=== PATIENT | female | born 1945 | race Caucasian/White ===

== ENCOUNTER 2022-11-30 13:40 | Outpatient (CLI) | payer MEDICARE, SELFPAY ==
--- NOTE | ~2022-11-30 | PE_ITS ---
EXAMINATION: PET skull to mid thigh DATE: 11/30/2022 15:37 INDICATION: Metastatic carcinoma TECHNIQUE: Blood glucose level was 102 mg/dL. 9.742 mCi of 18-fluorodeoxyglucose (18-FDG) was adminis tered i.v. Low dose computed tomography (CT) images were acquired from the base of the brain to the p roximal thighs for attenuation correction and anatomic localization. Positron emission tomography (PE T) images were acquired in the same distribution beginning 68 minutes after injection. Images includi ng fused PET/CT images were reconstructed in axial, coronal, and sagittal planes. Automated exposure control technique was employed. The dose-length product was 870.97mGy-cm. COMPARISON: None FINDINGS: Head/neck: There is symmetric increased activity in the oral cavity, laryngeal muscles and ocular muscles withou t CT correlate, likely physiologic. No pathologically enlarged cervical lymphadenopathy or suspicious foci of increased FDG uptake in the visualized head or neck. Chest: 6 mm nodule in the superior segment of the left lower lobe with mild increased FDG uptake of 3.1. The re is a second 7 mm right upper lobe nodule with maximal SUV of 2.2. There are a few FDG avid lymph n odes at the right hilum and mediastinum. The 3 FDG avid hilar lymph nodes are difficult to distinguis h from the adjacent vasculature in the absence of intravenous contrast but demonstrate maximal SUV va lues of 5.0, 12.7 and 14.4. More clearly delineated 1.5 x 1.0 cm mediastinal lymph node posterior to the right mainstem bronchus demonstrates maximal SUV of 20. Borderline heart size. Minimal pericardia l effusion. Atherosclerotic coronary artery calcification and aortic valve calcification. Thoracic ao rta is normal in caliber. Abdomen/pelvis/proximal thighs: Therefore FDG avid low-attenuation masses in the liver, the largest at the dome measuring approximate ly 2.5 cm with maximal SUV of 23.4. Gallbladder is decompressed around a 3.7 cm calcified gallstone. The pancreas, spleen and bilateral adrenal glands are normal. Mild bilateral renal atrophy. Physiolog ic renal accumulation and excretion of FDG activity in the kidneys, bladder and along portions of ure ters. There is a diverting loop colostomy in the left abdomen likely involving the splenic flexure of the c olon. There is moderate uptake in the skin surface along the margins of the ostomy without abnormal m ass lesion most consistent with physiologic response to the ostomy creation. There is marked wall thi ckening of the and descending colon beginning immediately downstream from the diverting colostomy. In the colon at this location has irregular lobular masslike configuration with surrounding stranding a nd several surrounding satellite nodules, all with marked increased FDG uptake consistent with likely primary colon cancer and extra serosal invasion or local metastatic disease. The maximal SUV in this region is 35.9. The regional masslike enlargement measures approximately 9.5 x 6.3 x 8.7 less severe wall thickening but with similar marked increased FDG uptake extending additional 9 cm distally karthik g the descending colon. There are couple FDG avid nodules along the sigmoid mesentery abutting the wa ll of the bladder with maximal SUV values of 16.3 and 16.9 likely representing metastatic mesenteric lymph nodes. No small bowel obstruction. The uterus is not identified and has likely been surgically resected. No abscess or free intraperineal gas or fluid. Stenting of the left common iliac vein. Musculoskeletal: No suspicious lytic, blastic or FDG avid bone lesions. IMPRESSION: 1. Large markedly FDG avid mass at the proximal descending colon with additional wall thickening and what increased FDG uptake extending more distally along the descending colon consistent with likely p rimary colon cancer. This occurs immediately distal to a left abdominal diverting loop colost
[2022-11-30 14:17] LABS: Glucose Point of Care 102 mg/dl (65-105)
== END 2022-11-30 13:41 | disposition home or self-care (01) ==
PROVIDERS: Visit Provider Surgery
DX: C48.1 Malignant neoplasm of specified parts of peritoneum (principal); K80.20 Calculus of gallbladder without cholecystitis without obstruction
CPT/HCPCS: 78815; A9552

== ENCOUNTER 2023-03-23 12:32 | Emergency (ER) | payer MEDICARE, SELFPAY ==
[2023-03-23] VITALS (19 sets, daily range): BP systolic 112–129; BP diastolic 40–57; PULSE 44–71; RESP 13–24; TEMP 36.4; O2SAT 99–100
--- NOTE | ~2023-03-23 | US_ITS ---
EXAMINATION: US venous doppler [facility] DATE: 03/23/2023 17:17 INDICATION: Left lower limb swelling. TECHNIQUE: Grayscale ultrasound images without and with compression and Doppler ultrasound images of the bilateral lower extremity veins were obtained. COMPARISON: None. FINDINGS: The visualized portions of right common femoral vein, profunda (deep) femoral vein, femoral vein, pop liteal vein, peroneal veins, posterior tibial veins, and greater saphenous vein outflow are patent. There is thrombus in left common femoral vein, profunda femoral vein, femoral vein, popliteal vein, p eroneal veins, posterior tibial veins, and greater saphenous vein. IMPRESSION: 1. Extensive deep vein thrombosis in left lower limb. I called this result to Dr. Cedillo. Reviewed, dictated and finalized at location A.
[2023-03-23 13:14] LABS: Basophils Absolute Auto 0.1 K/mm3 (0.0-0.1); Basophils Percent Auto 0.7 % (0.2-1.2); Eosinophils Absolute Auto 0.5 K/mm3 (0-0.3); Hematocrit 31.9 % (37.0-47.0); Hemoglobin 10.1 g/dL (12.0-15.0); Immature Granulocyte Absolute 0.11 K/mm3 (0.00-0.031); Immature Granulocyte Percent A 1.1 % (0-0.5); Lymphocytes Absolute Auto 2.86 K/mm3 (0.9-3.2); Lymphocytes Percent Auto 27.6 % (18.3-44.2); Mean Corpuscular HGB Conc 31.7 g/dl (32-36); Mean Corpuscular Volume 94.7 fl (80-100); Monocytes Absolute Auto 0.6 K/mm3 (0.1-0.6); Monocytes Percent Auto 5.9 % (2.6-8.5); Neutrophils Absolute Auto 6.2 K/mm3 (1.3-6.7); Neutrophils Percent Auto 59.7 % (45.5-73.1); Platelet Count Result 282 k/mm3 (150-375); Red Blood Count 3.37 M/mm3 (4.2-5.4); Red Cell Distribution Width 16.3 % (11.5-14.5); White Blood Count 10.4 K/mm3 (4.5-10.0)
[2023-03-23 13:30] LABS: Alanine Aminotransferase 23 U/L (6-35); Albumin Level 3.5 g/dL (3.5-5.1); Alkaline Phosphatase 124 U/L (38-126); Anion Gap 8 mmol/L (8-16); Aspartate Amino Transferase 31 U/L (14-36); Bilirubin,Total 0.4 mg/dL (0.2-1.3); Blood Urea Nitrogen 34 mg/dL (7-17); Calcium 9.2 mg/dL (8.4-10.2); Carbon Dioxide 15 mmol/L (22-30); Chloride 113 mmol/L (98-107); Estimated Glomerular Filt Rate 24; Glucose 152 mg/dL (65-110); Potassium 3.4 mmol/L (3.4-5.0); Sodium 136 mmol/L (137-145)
--- NOTE | 2023-03-23 15:14 | ED.EXTPRO ---
HPI - Extremity Problem General Chief complaint: Extremity Problem,Nontraumatic Stated complaint: left leg swelling Time Seen by Provider: 03/23/23 15:13 Source: patient and family Limitations: no limitations History of Present Illness HPI Narrative: Patient is a 78-year-old female presented to the emergency department complaining of left leg swelling that started on Sunday. Patient denies any history of unilateral lower extremity swelling in the past but does admit to history of bilateral lower extremity swelling when she had heart failure exacerbation many years ago. Patient denies any history of blood clots. Patient notes that the swelling has not improved prompting her to call her history professor who told her to come in to get an ultrasound and further evaluation. Patient is that she has tried to elevate the extremity without any relief. Patient denies any chest pain or shortness of breath. Patient admits to having metastatic cancer of her colon and liver and right lung for which she is seeing an oncologist Dr. Ramos and is currently on a novel medication intervention which she is unsure the name but received 1 dose thus far and has her next dose scheduled for April 05. Patient denies use of blood thinners. Patient denies long distance travel. Patient denies hemoptysis, cough, abdominal pain, nausea, vomiting, melena, hematochezia, dysuria, hematuria, urinary frequency, difficulty urinating, decreased urine production, numbness, weakness, recent injuries, recent illness. Patient denies any pain associated with the swelling. Patient denies fever. Related Data Allergies Allergy/AdvReac Type Severity Reaction Status Date / Time No Known Allergies Allergy Verified 03/23/23 15:34 PMFSH Comments Past medical history includes metastatic cancer in her colon and liver and right lung. Patient denies any allergies to medications. Patient admits to regular tobacco use. Patient denies alcohol or illicit drug use. Past surgical history includes port in the right chest wall and colostomy. Exam Const: General: no acute distress and alert Nutritional Appearance: obese Orientation/consciousness: patient oriented x3 HENMT: Head: normal to inspection Mouth: Yes moist mucous membranes Throat: posterior oropharynx normal Eyes: Conjunctivae: conjunctivae normal Pupils: Equal, round and reactive pupils present Chest: Other: Right chest wall port without tenderness to palpation or erythema. Resp: Effort & Inspection: normal respiratory effort and not labored Auscultation: clear to auscultation bilaterally Cardio: Rate: regular rate Rhythm: regular rhythm GI: Inspection: non-distended GI Palp: Yes Soft to palpation and No Tenderness to palpation present (GI) Other: Colostomy present over the left abdomen with stoma site appearing well and brown stool in the bag. Skin: Rashes: no rashes Neuro: General: patient oriented x3 and moves all extremities Extrem: General: edema left (2+ pitting) Psych: Mental Status: mental status grossly normal Course Vital Signs Vital signs: Vital Signs Temperature 97.6 F 03/23/23 12:52 Pulse Rate 59 L 03/23/23 12:52 Respiratory Rate 18 03/23/23 12:52 Blood Pressure 112/45 L 03/23/23 12:52 Pulse Oximetry 100 03/23/23 12:52 Oxygen Delivery Room Air 03/23/23 12:52 Temperature 97.6 F 03/23/23 12:52 Pulse Rate 55 L 03/23/23 18:23 Respiratory Rate 19 03/23/23 18:23 Blood Pressure 129/53 L 03/23/23 18:23 Pulse Oximetry 100 03/23/23 18:23 Oxygen Delivery Room Air 03/23/23 15:11 MDM - Extremity (Nontraumatic) MDM Narrative Medical decision making narrative: Patient presents as noted above. Vital signs without significant abnormalities. Patient appears in no acute distress. Physical examination remarkable for unilateral left lower extremity pitting edema. Left lower extremity neurovascularly intact. Patient denies any pain. Patient denies his
[2023-03-23 16:53] LABS: INR 1.1; Prothrombin Time 14.3 Seconds (11.1-14.7)
[2023-03-23] MEDS: APIXABAN 5 MG TABLET 10 MG PO (18:16)
== END 2023-03-23 18:20 | disposition home or self-care (01) ==
PROVIDERS: Preventive Medicine Aerospace Medicine; Emergency Provider Student in an Organized Health Care Education/Training Program; PCP Internal Medicine
DX: I82.402 Acute embolism and thrombosis of unspecified deep veins of left lower extremity (principal); C78.7 Secondary malignant neoplasm of liver and intrahepatic bile duct; C78.00 Secondary malignant neoplasm of unspecified lung; C78.5 Secondary malignant neoplasm of large intestine and rectum; I50.9 Heart failure, unspecified
CPT/HCPCS: 36415; 80053; 85025; 85610; 85730; 93970; 99284; A9270

== ENCOUNTER 2023-11-25 10:59 | Observation (INO) | payer MEDICARE, SELFPAY ==
[2023-11-25] VITALS (12 sets, daily range): BP systolic 118–190; BP diastolic 41–73; PULSE 39–50; RESP 12–20; TEMP 36.5–36.8; O2SAT 94–100; BMI 39.4
--- NOTE | ~2023-11-25 | XR_ITS ---
EXAMINATION: XR pelvis 1-2V DATE: 11/25/2023 12:40 INDICATION: Trauma TECHNIQUE: An anteroposterior view of the pelvis was obtained. COMPARISON: None. FINDINGS: Bone alignment is normal. No fracture. Mild osteoarthritis at the bilateral hip and sacroiliac joint spaces. There is calcified atherosclerosis of the aorta extending into the bilateral iliac and proxim al femoral arteries. Left common iliac vein stenting. IMPRESSION: 1. No acute osseous abnormality. Reviewed, dictated and finalized at location A.
--- NOTE | ~2023-11-25 | XR_ITS ---
EXAMINATION: XR elbow RT min 3V, XR shoulder RT min 2V, XR humerus RT DATE: 11/25/2023 12:40 INDICATION: Right upper arm pain post fall TECHNIQUE: 1. Anteroposterior and transcatheter Y views of the right shoulder were obtained. 2. Anteroposterior and lateral views of the right humerus were obtained. 3. Anteroposterior, two oblique and lateral views of the right elbow were obtained. COMPARISON: None. FINDINGS: Comminuted fractures of the proximal right humerus with a pair of oblique fracture planes beginning a t the mid diaphysis and with one fracture plane appears to extend to involve the cephalad margin of t he greater tuberosity. There is 35 degrees posterior angulation of the distal diaphysis relative to t he humeral head associated with one of the more proximal fractures. There is a 7 mm posterior displac ement of the most distal extending fracture plane. No fracture of the more distal right humerus or visualized proximal forearm. Normal alignment with mi ld osteoarthritis at the right elbow. No elbow joint effusion. Mild osteoarthritis at the right acrom ion clavicular and glenohumeral joints. There is an accessed right subclavian central venous port cat heter with distal tip in the right atrium. Visualized portions of the lungs are clear IMPRESSION: 1. Displaced and angulated comminuted fractures of the proximal right humerus which appears to extend from the greater tuberosity to the anterior margin of the mid diaphysis. Reviewed, dictated and finalized at location A. IMPRESSION: 1. Displaced and angulated comminuted fractures of the proximal right humerus w hich appears to extend from the greater tuberosity to the anterior margin of th e mid diaphysis. IMPRESSION: 1. Displaced and angulated comminuted fractures of the proximal right humerus w hich appears to extend from the greater tuberosity to the anterior margin of th e mid diaphysis.
--- NOTE | ~2023-11-25 | CT_ITS ---
EXAMINATION: CT brain wo con DATE: 11/25/2023 12:26 INDICATION: Check regulated patient with large scalp hematoma post fall with head injury TECHNIQUE: Computed tomography (CT) of the head was performed without intravenous contrast. Sagittal and coronal reconstructions were performed. The mA was adjusted according to patient size. Iterative reconstruction technique was employed. The dose-length product was 681.00 mGy-cm. COMPARISON: None FINDINGS: Large frontal scalp hematoma. No calvarial fracture. No acute intracranial hemorrhage, acute infarcti on or abnormal extra axial fluid collection. There is mild scattered white matter hypoattenuation con sistent with chronic small vessel ischemic disease. Symmetric prominence of the sulci and and subarac hnoid spaces overlying the convexities consistent with mild to moderate age-appropriate diffuse cereb ral volume loss. Ventricles are normal and symmetric. No mass/mass effect. Partial opacification of t he posterior left ethmoid air cell. Small left mastoid effusion. The orbits are normal. IMPRESSION: 1. Large frontal scalp hematoma. No fracture or acute intracranial process. 2. Age related changes including mild to moderate diffuse volume loss and mild scattered white matter hypoattenuation consistent with chronic small vessel ischemic disease. Reviewed, dictated and finalized at location A. IMPRESSION: 1. Large frontal scalp hematoma. No fracture or acute intracranial process. 2. Age related changes including mild to moderate diffuse volume loss and mild scattered white matter hypoattenuation consistent with chronic small vessel isc hemic disease.
--- NOTE | ~2023-11-25 | CT_ITS ---
EXAMINATION: CT cervical spine wo con DATE: 11/25/2023 12:26 INDICATION: Fall with head injury TECHNIQUE: Computed tomography (CT) of the cervical spine was performed without intravenous contrast. The dose-length product was 464.06 mGy-cm. COMPARISON: None FINDINGS: 10 degree lower cervical dextrocurvature. Sagittal alignment is normal. Vertebral body heights are no rmal. No fracture. Severe osteoarthritis at the atlantoaxial articulation. Moderate disc height loss at C4-C5 and C5-C6. Mild disc height loss at C6-C7 and C7-T1. Severe uncovertebral osteoarthritis on the left at C5-C6. Mild uncovertebral osteoarthritis at several of the remaining cervical uncovertebr al joints. Severe facet osteoarthritis on the right at C2-C3. Mild to moderate osteoarthritis in the remainder of the cervical spine most prominent at the mid to upper left cervical spine. Mild disc bul ges at C4-C5 and C5-C6 resulting in minimal central canal stenosis. Mild to moderate neural foraminal stenosis on the left at C5-C6 with minimal to mild neural foraminal stenosis at a few additional lev els on both the left and right. Atherosclerotic calcification along the bilateral carotid arteries. C ervical soft tissues are otherwise unremarkable. Visualized apices of lungs are clear. IMPRESSION: 1. Moderate cervical spondylosis. No acute osseous abnormality. Reviewed, dictated and finalized at location A.
--- NOTE | ~2023-11-25 | XR_ITS ---
EXAMINATION: XR chest 1V portable DATE: 11/25/2023 12:40 INDICATION: Trauma TECHNIQUE: frontal view of the chest was obtained. COMPARISON: None FINDINGS: The lungs are clear with no focal airspace opacities, pulmonary edema, pleural effusion or pneumothor ax. Normal heart size with prominent left paracardial fat pad. Access right subclavian central venous port catheter with distal tip in the right atrium. Mild to moderate thoracic spondylosis. Partially visualized indeterminate 3.5 cm calcific density projecting over the right upper quadrant. IMPRESSION: 1. No acute cardiopulmonary disease. Reviewed, dictated and finalized at location A.
--- NOTE | 2023-11-25 11:01 | ED.FALL ---
HPI - Fall General Chief Complaint: Fall Stated Complaint: fall Time Seen by Provider: 11/25/23 11:01 History of Present Illness HPI Narrative: Patient is a 78-year-old female with history of metastatic colon cancer, in remission, status post colostomy placement last year, DVT on Eliquis here after a fall. Patient states that prior to arrival she was microwave being some sausage and the casing exploded, she went to try to clean up the mess and fell face forward hitting her head on the floor. She denies loss of consciousness. She is anticoagulated on Eliquis. She does have a prior raised area on her forehead after a fall with a hematoma in this same location from an injury that occurred a couple of years ago. She notes it has increased in size since the fall. She is additionally complaining of right shoulder and upper arm pain since the fall, worse with movement, severe. No meds taken prior to arrival. She follows with [facility]Note 3[facility] Oncology. Related Data Home Medications Medication Instructions Recorded Confirmed aspirin 81 mg tablet,delayed 81 mg PO DAILY 11/25/23 11/25/23 release atorvastatin 40 mg tablet 40 mg PO QHS 11/25/23 11/25/23 carvedilol 12.5 mg tablet 12.5 mg PO BID 11/25/23 11/25/23 ergocalciferol (vitamin D2) 1,250 50,000 unit PO WEEKLY 11/25/23 11/25/23 mcg (50,000 unit) capsule losartan 100 mg tablet 100 mg PO DAILY 11/25/23 11/25/23 prednisone 20 mg tablet 60 mg DAILY 11/25/23 11/25/23 torsemide 20 mg tablet 20 mg PO DAILY 11/25/23 11/25/23 Allergies Allergy/AdvReac Type Severity Reaction Status Date / Time No Known Allergies Allergy Verified 03/23/23 15:34 Review of Systems Review of Systems: All systems reviewed & are unremarkable except as noted in HPI and below PMFSH Social History Social History Smoking packs per day: 1 Smoking cigarettes per day: 20.0 Years smoked: 55 Smoking pack-years: 55.00 Smoking status: Heavy tobacco smoker Alcohol intake: former Substance use: unknown Do You Feel Safe in your Home?: Yes Lack of Transportation: No Lack of Food: Never True Current Housing: I Have Housing Concerned About Future Housing: No Difficulty Paying Gas/Electric Bills: No Difficulty Paying for Meds: No Currently Unemployed: No Education: Decline to Answer Difficulty w/ Childcare or Family Care: No Spiritual care concerns: No Exam Narrative: GENERAL: Well-appearing, well-nourished, and in no acute distress. HEAD: Normocephalic, hematoma present to the midforehead, small overlying abrasion, no active bleeding. EYES: PERRLA and EOMI. ENT: Nares clear. Mucous membranes moist. NECK: Supple. No cervical spine tenderness. CHEST: Clear to auscultation. No respiratory distress. No chest wall tenderness. HEART: Regular rate and rhythm. Normal peripheral pulses. ABDOMEN: Soft, nontender, nondistended. Colostomy present in the left abdomen. EXTREMITIES: Tenderness present in the right shoulder and right humerus, arm held in flexion, no elbow tenderness with normal range of motion, no wrist tenderness with normal range of motion. Sensation intact throughout arm, strong radial pulse, normal capillary refill in the hand. Left upper extremity, bilateral lower extremities atraumatic. SKIN: Warm, dry, no rash. NEURO: No focal deficits. Alert and oriented x3. PSYCH: Normal mood and affect. Course Course Emergency Course: Chart review performed. Patient here after a fall. Medication list includes Eliquis, she appears to have been here last in March of 2023 and was diagnosed with a DVT. Patient seen evaluated, nontoxic appearing. She is here after mechanical fall, has a head injury as well as a right upper extremity injury. She is on anticoagulation. Imaging ordered. Pain medication ordered. Lab work and imaging reviewed, white blood cell count 23, renal function improved from last draw about 8 m
[2023-11-25] MEDS: ONDANSETRON INJ 4 MG/2 ML VIAL IV PUSH (12:02)
[2023-11-25] MEDS: MORPHINE SULFATE (*CRX) 4 MG/ML INJ IV PUSH ×3 (12:02→18:45)
[2023-11-25 12:05] LABS: Basophils Absolute Auto 0.1 K/mm3 (0.0-0.1); Basophils Percent Auto 0.3 % (0.2-1.2); Hematocrit 39.8 % (37.0-47.0); Hemoglobin 13.2 g/dL (12.0-15.0); Immature Granulocyte Absolute 0.88 K/mm3 (0.00-0.031); Immature Granulocyte Percent A 3.8 % (0-0.5); Lymphocytes Absolute Auto 3.61 K/mm3 (0.9-3.2); Lymphocytes Percent Auto 15.7 % (18.3-44.2); Mean Corpuscular HGB Conc 33.2 g/dl (32-36); Mean Corpuscular Hemoglobin 30.1 pg (26-34); Mean Corpuscular Volume 90.9 fl (80-100); Mean Platelet Volume 10.4 fl (7.4-10.4); Monocytes Absolute Auto 1.5 K/mm3 (0.1-0.6); Monocytes Percent Auto 6.3 % (2.6-8.5); Neutrophils Percent Auto 73.9 % (45.5-73.1); Platelet Count Result 307 k/mm3 (150-375); Red Blood Count 4.38 M/mm3 (4.2-5.4); Red Cell Distribution Width 13.9 % (11.5-14.5)
[2023-11-25 12:15] LABS: INR 1.3; Prothrombin Time 16.5 Seconds (11.1-14.7)
[2023-11-25 12:16] LABS: Alanine Aminotransferase 18 U/L (6-35); Albumin Level 3.7 g/dL (3.5-5.1); Alkaline Phosphatase 74 U/L (38-126); Anion Gap 8 mmol/L (4-12); Aspartate Amino Transferase 20 U/L (14-36); Bilirubin,Total 0.5 mg/dL (0.2-1.3); Blood Urea Nitrogen 58 mg/dL (7-17); Calcium 8.9 mg/dL (8.4-10.2); Carbon Dioxide 25 mmol/L (22-30); Chloride 104 mmol/L (98-107); Estimated Glomerular Filt Rate 31; Glucose 147 mg/dL (65-110); Potassium 3.5 mmol/L (3.4-5.0); Sodium 137 mmol/L (137-145)
[2023-11-25 12:16] LABS: Partial Thromboplastin Time 24.8 Seconds (22.3-36.8)
--- NOTE | 2023-11-25 13:33 | ECG_ITS ---
SEE SCANNED COPY FOR CONFIRMED REPORT MTDD
[2023-11-25] MEDS: TETANUS,DIPHTHERIA,AC PERTUSSIS ADULT (0.5 ML) BOOSTRIX IM (13:59)
--- NOTE | 2023-11-25 15:45 | PM.IMHP ---
H&P: HPI History of Present Illness Date/Time: 11/25/23 15:45 Chief Complaint: Fall Narrative: 78 y/o F presents here for further evaluation after ground level fall with PMH of metastatic colon cancer (s/p colon resection with colostomy in 2022), COPD, CHF, HTN, CKD, and DVT to the LLE on Eliquis. SH of colectomy and colostomy. Patient presents here from home via EMS for further evaluation after ground level fall. Patient was caring her breakfast to her room when the biscuits and sausage fell onto the floor, patient stepped onto the sausage and slipped. Patient fell face forward. Positive head strike to the forehead, no loss of consciousness, currently on Eliquis secondary to DVT (LLE). Has previous history of fall 2 years ago with head strike to same region developed hematoma, has raised area to this location at baseline. Complaints upon arrival were of right shoulder pain and right upper extremity pain. Described as severe, worsening with movement, and non-radiating. Aggravating or alleviating factors - movement worsens the RUE pain and rest/holding upper extremity still partially alleviates the pain. No other other recent falls. Will occasionally use a cane when she is feeling weak, but does not need an assistive device on a regular basis. Denies prodromal s/s prior to fall - lightheadedness, vision changes, chest pain, or shortness of breath. Has known history of metastatic colon cancer, had colon resection with colostomy placement in 2022 and follows with [facility] at [facility] for her oncology care. Denies dysuria or urinary frequency. Initial VS at presentation: 98.2? F, HR 50, RR 16, 190/68, and 100% on RA. ED workup showed: WBC 23.0, no anemia, INR 1.3, creatinine 1.6 with GFR 31 (2.0 in 03/2023), glucose 147. Head and C-spine CT showed large frontal scalp hematoma, otherwise no acute osseous abnormality or intracranial abnormality. XR of the right elbow, shoulder, humerus showed a displaced and angulated comminuted fracture of the proximal right humerus. CXR showed no acute cardiopulmonary disease. XR of the pelvis showed no acute osseous abnormality. Review of Systems Review of Systems: All systems reviewed & are unremarkable except as noted in HPI and below PMFSH Past Medical History Medical History Arthritis CHF (congestive heart failure) CKD (chronic kidney disease) Colon cancer COPD (chronic obstructive pulmonary disease) Depression DVT (deep venous thrombosis) 2022, LLE HTN (hypertension) Kidney stones Migraine Sleep apnea Surgical History Surgical History History of appendectomy History of colectomy History of colostomy History of partial hysterectomy Social History Social History Smoking packs per day: 1 Smoking cigarettes per day: 20.0 Years smoked: 55 Smoking pack-years: 55.00 Smoking status: Heavy tobacco smoker Alcohol intake: former Substance use: unknown Do You Feel Safe in your Home?: Yes Lack of Transportation: No Lack of Food: Never True Current Housing: I Have Housing Concerned About Future Housing: No Difficulty Paying Gas/Electric Bills: No Difficulty Paying for Meds: No Currently Unemployed: No Education: Decline to Answer Difficulty w/ Childcare or Family Care: No Spiritual care concerns: No Meds Home Medications and Allergies Home Medications Medication Instructions Recorded Confirmed Type apixaban 5 mg tablet (Eliquis) 5 mg PO BID DVT #70 tabs 03/24/23 11/25/23 Rx aspirin 81 mg tablet,delayed 81 mg PO DAILY 11/25/23 11/25/23 History release atorvastatin 40 mg tablet 40 mg PO QHS 11/25/23 11/25/23 History carvedilol 12.5 mg tablet 12.5 mg PO BID 11/25/23 11/25/23 History ergocalciferol (vitamin D2) 1,250 50,000 unit PO WEEKLY 11/25/23 11/25/23 History mcg (50,000 unit) capsu
--- NOTE | 2023-11-25 16:02 | ADMGEN ---
This patient, Yuki Lopez, was admitted to Medical Room 341-01. Patient/family oriented to hospital policies and general routines including ID bracelet, bed and alarms, visiting hours, pain management, procedures, bathroom and other care routines, personal items, smoking policy, room service/diet, and visiting hours. Information on how to activate the Rapid Response Team has been discussed. Patient/Family are encouraged to report perceived risks to care and to ask questions if they do not understand what they are told or what they should do.
[2023-11-25 19:16] LABS: Appearance Urine Clear (Clear); Bacteria Urine 4+ /hpf; Bilirubin Urine Negative (Negative); Blood Urine Negative (Negative); Color Urine Yellow (Yellow); Glucose Urine UA Negative (Negative); Ketones Urine Negative (Negative); Leukocyte Esterase Ur 3+ LEU/UL (Negative); Nitrate Urine Positive (Negative); Protein Urine Negative (Negative); RBC Urine 0-2 /hpf (0-2); Squamous Epithelial Cell Urine None Seen /hpf (Few); Urobilinogen Urine 0.2 mg/dL (<2.0); WBC Urine 21-50 /hpf (0-3); pH Urine 5.5 (5.0-9.0)
[2023-11-25 19:17] LABS: Add Urine Microscopic? YES
[2023-11-26] VITALS (10 sets, daily range): BP systolic 110–125; BP diastolic 44–50; PULSE 40–60; RESP 16–18; TEMP 36.3–36.5; O2SAT 96–98
[2023-11-26] MEDS: diazePAM (*CRX) 2 MG TABLET 1 MG PO (05:42)
[2023-11-26 08:56] LABS: Basophils Percent Auto 0.2 % (0.2-1.2); Eosinophils Absolute Auto 0.1 K/mm3 (0-0.3); Eosinophils Percent Auto 0.8 % (0-4.4); Hematocrit 33.6 % (37.0-47.0); Hemoglobin 10.9 g/dL (12.0-15.0); Immature Granulocyte Absolute 0.28 K/mm3 (0.00-0.031); Immature Granulocyte Percent A 1.8 % (0-0.5); Lymphocytes Absolute Auto 4.13 K/mm3 (0.9-3.2); Lymphocytes Percent Auto 26.1 % (18.3-44.2); Mean Corpuscular HGB Conc 32.4 g/dl (32-36); Mean Corpuscular Hemoglobin 30.1 pg (26-34); Mean Corpuscular Volume 92.8 fl (80-100); Mean Platelet Volume 9.9 fl (7.4-10.4); Monocytes Absolute Auto 1.1 K/mm3 (0.1-0.6); Monocytes Percent Auto 6.8 % (2.6-8.5); Neutrophils Absolute Auto 10.2 K/mm3 (1.3-6.7); Neutrophils Percent Auto 64.3 % (45.5-73.1); Platelet Count Result 222 k/mm3 (150-375); Red Blood Count 3.62 M/mm3 (4.2-5.4); White Blood Count 15.8 K/mm3 (4.5-10.0)
[2023-11-26] MEDS: carvediloL 12.5 MG TABLET PO (09:01)
[2023-11-26] MEDS: APIXABAN 5 MG TABLET PO ×2 (09:01→20:45)
[2023-11-26] MEDS: predniSONE 20 MG TABLET 60 MG PO (09:01)
[2023-11-26] MEDS: ASPIRIN 81 MG ENTERIC TABLET PO (09:01)
[2023-11-26] MEDS: LOSARTAN POTASSIUM 100 MG TABLET PO (09:01)
[2023-11-26] MEDS: TORSEMIDE 20 MG TABLET PO (09:02)
[2023-11-26 09:08] LABS: Alanine Aminotransferase 15 U/L (6-35); Alkaline Phosphatase 69 U/L (38-126); Anion Gap 6 mmol/L (4-12); Aspartate Amino Transferase 20 U/L (14-36); Bilirubin,Total 0.6 mg/dL (0.2-1.3); Blood Urea Nitrogen 67 mg/dL (7-17); Calcium 8.2 mg/dL (8.4-10.2); Carbon Dioxide 25 mmol/L (22-30); Chloride 104 mmol/L (98-107); Estimated Glomerular Filt Rate 23; Glucose 116 mg/dL (65-110); Potassium 3.4 mmol/L (3.4-5.0); Sodium 135 mmol/L (137-145)
[2023-11-26] MEDS: MORPHINE SULFATE (*CRX) 4 MG/ML INJ IV PUSH ×2 (09:51→20:44)
--- NOTE | 2023-11-26 13:23 | PM.IMPN ---
Progress Note: A&P Assessment and Plan (1) Ground-level fall: Code(s): W18.30XA - Fall on same level, unspecified, initial encounter Status: Acute Assessment and Plan: - mechanical fall secondary to liquid on the kitchen floor, no LOC - CT head: Large frontal scalp hematoma. No fracture or acute intracranial process.Age related changes including mild to moderate diffuse volume loss and mild scattered white matter hypoattenuation consistent with chronic small vessel ischemic disease. - CT cervical spine: Moderate cervical spondylosis. No acute osseous abnormality. - XR right elbow, humerus, shoulder: Displaced and angulated comminuted fractures of the proximal right humerus which appears to extend from the greater tuberosity to the anterior margin of the mid diaphysis. - CXR: no acute cardiopulmonary disease. - XR pelvis: no acute osseous abnormality. - pain management (2) Comminuted fracture of right humerus: Qualifiers: Encounter type: initial encounter Fracture alignment: displaced Fracture type: closed Humerus Location: shaft Qualified Code(s): S42.351A - Displaced comminuted fracture of shaft of humerus, right arm, initial encounter for closed fracture Code(s): S42.351A - Displaced comminuted fracture of shaft of humerus, right arm, initial encounter for closed fracture Status: Acute Assessment and Plan: XR right elbow, humerus, shoulder: Displaced and angulated comminuted fractures of the proximal right humerus which appears to extend from the greater tuberosity to the anterior margin of the mid diaphysis. - ED spoke with Navid DANIEL with orthopedic team, recommended: - patient's pain poorly controlled - ortho consulted, awaiting recs (3) UTI (urinary tract infection): Code(s): N39.0 - Urinary tract infection, site not specified Status: Acute Assessment and Plan: UA: Positive nitrates, 3+ leuks, 21-50 WBC, no epithelial cells, and 4+ bacteria - UC obtained on 11/24, pending - previous micro reviewed: none available for review - started on Ceftriaxone on 11/24 (4) HTN (hypertension): Code(s): I10 - Essential (primary) hypertension Status: Acute Assessment and Plan: - continue home medications: Carvedilol 12.5 mg b.i.d. and losartan 100 mg daily - monitor Subjective Date/time seen: 11/26/23 13:23 Interval history: Patient doing well today. Patient states that her arm is quite painful. She denies any numbness and tingling in her fingertips and she is able to move her fingers. She denies having chest pain, shortness a breath, nausea, vomiting or dysuria. Exam Narrative: GENERAL: Comfortable, no acute distress HENMT: moist mucous membranes EYES: EOM intact b/l NECK: no lymphadenopathy RESPIRATORY: clear to auscultation, no increased respiratory effort CARDIO: Regular rate and rhythm GI: soft, nontender, bowel sounds present SKIN/EXTREMITIES: Right arm in sling NEURO: answers questions appropriately, A&O x4 Objective Data Vital Signs Vital Signs: Vital Signs - 24 hr 11/25/23 14:06 11/25/23 14:15 11/25/23 15:20 Temperature Pulse Rate 46 L 48 L 46 L Respiratory Rate 20 16 14 Blood Pressure 130/70 176/52 H 149/52 H Pulse Oximetry 94 97 96 Oxygen Delivery 11/25/23 16:12 11/25/23 16:04 11/25/23 20:15 Temperature 97.7 F Pulse Rate 39 L 39 L Respiratory Rate 18 18 Blood Pressure 143/41 H Pulse Oximetry 96 96 96 Oxygen Delivery Room Air Room Air 11/25/23 20:00 11/25/23 22:00 11/25/23 20:00 Temperature 97.7 F Pulse Rate 48 L 45 L Respiratory Rate 16 Blood Pressure 118/46 L Pulse Oximetry 95 Oxygen Delivery Room Air 11/26/23 00:00 11/26/23 04:00 11/26/23 06:35 Temperature 97.3 F L Pulse Rate 40 L 44 L 52 L Respiratory Rate 18 Blood Pressure 125/44 L Pulse Oximetry 97 Oxygen Delivery 11/26/23 08:00 Temperature Pulse Rate 49 L Resp
--- NOTE | 2023-11-26 13:24 | PM.CNOR ---
Assessment and Plan Assessment and plan (1) Comminuted fracture of right humerus: Qualifiers: Encounter type: initial encounter Fracture alignment: displaced Fracture type: closed Humerus Location: shaft Qualified Code(s): S42.351A - Displaced comminuted fracture of shaft of humerus, right arm, initial encounter for closed fracture Code(s): S42.351A - Displaced comminuted fracture of shaft of humerus, right arm, initial encounter for closed fracture Status: Acute Assessment and Plan: Patient has comminuted fracture right humerus. Be very difficult to fix. Try immobilization in a shoulder immobilizer returned last night from the emergency room follow-up one-week. History of Present Illness HPI Consult date: 11/26/23 Chief complaint: Fall/Humerus Fracture Review of Systems Musculoskeletal: Musculoskeletal: Reports arthralgias and Reports joint swelling PMFSH Past Medical History Medical History Arthritis CHF (congestive heart failure) CKD (chronic kidney disease) Colon cancer COPD (chronic obstructive pulmonary disease) Depression DVT (deep venous thrombosis) 2022, LLE HTN (hypertension) Kidney stones Migraine Sleep apnea Surgical History Surgical History History of appendectomy History of colectomy History of colostomy History of partial hysterectomy Social History Social History Smoking packs per day: 1 Smoking cigarettes per day: 20.0 Years smoked: 55 Smoking pack-years: 55.00 Smoking status: Heavy tobacco smoker Alcohol intake: former Substance use: unknown Do You Feel Safe in your Home?: Yes Lack of Transportation: No Lack of Food: Never True Current Housing: I Have Housing Concerned About Future Housing: No Difficulty Paying Gas/Electric Bills: No Difficulty Paying for Meds: No Currently Unemployed: No Education: Decline to Answer Difficulty w/ Childcare or Family Care: No Spiritual care concerns: No Meds Home Medications and Allergies Home Medications Medication Instructions Recorded Confirmed Type apixaban 5 mg tablet (Eliquis) 5 mg PO BID DVT #70 tabs 03/24/23 11/25/23 Rx aspirin 81 mg tablet,delayed 81 mg PO DAILY 11/25/23 11/25/23 History release atorvastatin 40 mg tablet 40 mg PO QHS 11/25/23 11/25/23 History carvedilol 12.5 mg tablet 12.5 mg PO BID 11/25/23 11/25/23 History ergocalciferol (vitamin D2) 1,250 50,000 unit PO WEEKLY 11/25/23 11/25/23 History mcg (50,000 unit) capsule losartan 100 mg tablet 100 mg PO DAILY 11/25/23 11/25/23 History prednisone 20 mg tablet 60 mg DAILY 11/25/23 11/25/23 History torsemide 20 mg tablet 20 mg PO DAILY 11/25/23 11/25/23 History Allergies Allergy/AdvReac Type Severity Reaction Status Date / Time No Known Allergies Allergy Verified 03/23/23 15:34 Vital Signs Vital Signs - 24 hr 11/25/23 14:06 11/25/23 14:15 11/25/23 15:20 Temperature Pulse Rate 46 L 48 L 46 L Respiratory Rate 20 16 14 Blood Pressure 130/70 176/52 H 149/52 H Pulse Oximetry 94 97 96 Oxygen Delivery 11/25/23 16:12 11/25/23 16:04 11/25/23 20:15 Temperature 97.7 F Pulse Rate 39 L 39 L Respiratory Rate 18 18 Blood Pressure 143/41 H Pulse Oximetry 96 96 96 Oxygen Delivery Room Air Room Air 11/25/23 20:00 11/25/23 22:00 11/25/23 20:00 Temperature 97.7 F Pulse Rate 48 L 45 L Respiratory Rate 16 Blood Pressure 118/46 L Pulse Oximetry 95 Oxygen Delivery Room Air 11/26/23 00:00 11/26/23 04:00 11/26/23 06:35 Temperature 97.3 F L Pulse Rate 40 L 44 L 52 L Respiratory Rate 18 Blood Pressure 125/44 L Pulse Oximetry 97 Oxygen Delivery 11/26/23 08:00 Temperature Pulse Rate 49 L Respiratory Rate Blood Pressure Pulse Oximetry Oxygen Delivery Exam Narrative: I
[2023-11-26] MEDS: CENTRAL LINE FLUSH 10 ML IV PUSH ×2 (15:11→20:46)
[2023-11-26] MEDS: HYDROcodone/acetaminophen (*CRX) 5-325 MG TABLET 1 TAB PO (17:03)
[2023-11-26] MEDS: SODIUM CHLORIDE 0.9% IV 500 ML 999 ML IV CONT (17:39)
[2023-11-26] MEDS: ATORVASTATIN 40 MG TABLET PO (20:45)
[2023-11-27] VITALS (12 sets, daily range): BP systolic 113–156; BP diastolic 47–56; PULSE 35–59; RESP 16–20; TEMP 36.5–36.6; O2SAT 97–100
[2023-11-27] MEDS: MORPHINE SULFATE (*CRX) 4 MG/ML INJ IV PUSH ×2 (05:29→20:38)
[2023-11-27] MEDS: CENTRAL LINE FLUSH 10 ML IV PUSH ×3 (05:29→20:39)
[2023-11-27] MEDS: TORSEMIDE 20 MG TABLET PO (09:45)
[2023-11-27] MEDS: predniSONE 20 MG TABLET 60 MG PO (09:45)
[2023-11-27] MEDS: HYDROcodone/acetaminophen (*CRX) 5-325 MG TABLET 1 TAB PO ×2 (09:45→16:50)
[2023-11-27] MEDS: LOSARTAN POTASSIUM 100 MG TABLET PO (09:46)
[2023-11-27] MEDS: APIXABAN 5 MG TABLET PO ×2 (09:46→20:39)
[2023-11-27] MEDS: ASPIRIN 81 MG ENTERIC TABLET PO (09:46)
[2023-11-27] MEDS: ERGOCALCIFEROL 50,000 UNITS CAPSULE 50000 UNITS PO (09:52)
--- NOTE | 2023-11-27 11:24 | PC.NURSE ---
Spoke with hospitalist, Junie, during rounding this am. Junie agrees with holding am coreg with pt being bradycardiac.
--- NOTE | 2023-11-27 15:06 | PM.IMPN ---
Progress Note: A&P Assessment and Plan (1) Ground-level fall: Code(s): W18.30XA - Fall on same level, unspecified, initial encounter Status: Acute Assessment and Plan: - mechanical fall secondary to liquid on the kitchen floor, no LOC - CT head: Large frontal scalp hematoma. No fracture or acute intracranial process.Age related changes including mild to moderate diffuse volume loss and mild scattered white matter hypoattenuation consistent with chronic small vessel ischemic disease. - CT cervical spine: Moderate cervical spondylosis. No acute osseous abnormality. - XR right elbow, humerus, shoulder: Displaced and angulated comminuted fractures of the proximal right humerus which appears to extend from the greater tuberosity to the anterior margin of the mid diaphysis. - CXR: no acute cardiopulmonary disease. - XR pelvis: no acute osseous abnormality. - pain management (2) Comminuted fracture of right humerus: Qualifiers: Encounter type: initial encounter Fracture alignment: displaced Fracture type: closed Humerus Location: shaft Qualified Code(s): S42.351A - Displaced comminuted fracture of shaft of humerus, right arm, initial encounter for closed fracture Code(s): S42.351A - Displaced comminuted fracture of shaft of humerus, right arm, initial encounter for closed fracture Status: Acute Assessment and Plan: XR right elbow, humerus, shoulder: Displaced and angulated comminuted fractures of the proximal right humerus which appears to extend from the greater tuberosity to the anterior margin of the mid diaphysis. - Orthopedics consulted - Conservative management at this time. Shoulder immobilizer and follow up with Ortho in 1 week. - Add right arm sling to see if this is more comfortable for the patient. (3) UTI (urinary tract infection): Code(s): N39.0 - Urinary tract infection, site not specified Status: Acute Assessment and Plan: UA: Positive nitrates, 3+ leuks, 21-50 WBC, no epithelial cells, and 4+ bacteria - UC obtained on 11/24, pending - previous micro reviewed: none available for review - started on Ceftriaxone on 11/24 (4) HTN (hypertension): Code(s): I10 - Essential (primary) hypertension Status: Acute Assessment and Plan: - continue home medications: Carvedilol 12.5 mg b.i.d. and losartan 100 mg daily - monitor Subjective Date/time seen: 11/27/23 15:06 Interval history: Patient is still having right arm pain. She states that she wishes her arm was more immobilized. Advised a possible sling. Discussed with nurse and will try a sling placement as soon as we can get 1. Urine cultures are still pending. Once urine cultures returned patient can be transition to oral antibiotics she will be able to discharge. Exam Narrative: GENERAL: Comfortable, no acute distress HENMT: moist mucous membranes EYES: EOM intact b/l NECK: no lymphadenopathy RESPIRATORY: clear to auscultation, no increased respiratory effort CARDIO: Regular rate and rhythm GI: soft, nontender, bowel sounds present SKIN/EXTREMITIES: Right arm In an immobilizer NEURO: answers questions appropriately, A&O x4 Objective Data Vital Signs Vital Signs: Vital Signs - 24 hr 11/26/23 16:00 11/26/23 20:45 11/26/23 20:00 Temperature Pulse Rate 51 L 49 L Respiratory Rate Blood Pressure Pulse Oximetry Oxygen Delivery Room Air 11/26/23 22:00 11/26/23 20:00 11/27/23 00:00 Temperature 97.7 F Pulse Rate 50 L 40 L 58 L Respiratory Rate 18 Blood Pressure 123/48 L Pulse Oximetry 96 Oxygen Delivery 11/27/23 04:00 11/27/23 06:00 11/27/23 08:28 Temperature 97.7 F Pulse Rate 59 L 56 L Respiratory Rate 20 Blood Pressure 156/48 H Pulse Oximetry 98 97 Oxygen Delivery Room Air 11/27/23 10:57 11/27/23 08:00 11/27/23 12:00 Temperature Pulse Rate 38 L 35 L 49 L Respiratory Rate
[2023-11-27] MEDS: ATORVASTATIN 40 MG TABLET PO (20:39)
[2023-11-28] VITALS (10 sets, daily range): BP systolic 147–184; BP diastolic 55–57; PULSE 34–68; RESP 18; TEMP 36.4–37.1; O2SAT 94–100
--- NOTE | 2023-11-28 | ECHO_ITS ---
Patient Info Name: Yuki Lopez Age: 78 years : 1945 Gender: Female Ht: 58 in Wt: 182 lbs BSA: 1.88 m2 HR: 53 bpm BP: 182 / 60 mmHg Technical Quality: Fair Exam Date: 11/28/2023 9:55 AM Exam Location: Echo Lab Exam Room: 341 Patient Status: Inpatient Admit Date: 11/25/2023 Staff Ordering Physician: Salma Gomez APRN Paint Tinter: Ankita Jernigan RDCS Attending Provider: Tony Braswell MD Referring Physician: Jason SIERRA; Exam Type: CA echo doppler color flow Study Info Indications R00.1 - Bradycardia, unspecified Complete two-dimensional, color flow and Doppler transthoracic echocardiogram is performed. Summary 1. Complete two-dimensional, color flow and Doppler transthoracic echocardiogram is performed. 2. Left ventricular chamber dimension is normal. 3. Left ventricular systolic function is normal, estimated at 55-60%. 4. The left ventricular diastolic function is grade I diastolic dysfunction. 5. E/e' 13 is mildly elevated. 6. Left atrial chamber dimension is moderately enlarged. 7. There is mild aortic valve sclerosis. 8. The mitral valve has mildly calcified annulus. 9. There is mild to moderate mitral valve regurgitation. 10. No pulmonary hypertension, estimated pulmonary arterial systolic pressure is 30 mmHg. Left Ventricle E/e' 13 is mildly elevated. Left ventricular chamber dimension is normal. Left ventricular systolic function is normal, estimated at 55-60%. The left ventricular diastolic function is grade I diastolic dysfunction. Right Ventricle Right ventricular chamber dimension is normal. Right ventricular systolic function is normal. Left Atria Left atrial chamber dimension is moderately enlarged. Right Atria Right atrial chamber dimension is normal. Aortic Valve The aortic valve is trileaflet. There is mild aortic valve sclerosis. There is no aortic valve stenosis. There is no aortic valve regurgitation. Pulmonic Valve There is no pulmonic regurgitation. Mitral Valve The mitral valve has mildly calcified annulus. There is no mitral valve stenosis. There is mild to moderate mitral valve regurgitation. Tricuspid Valve There is no tricuspid valve regurgitation. No pulmonary hypertension, estimated pulmonary arterial systolic pressure is 30 mmHg. Pericardium/Pleural There is no pericardial effusion. Inferior Vena Cava Normal inferior vena cava with >50% collapse upon inspiration consistent with normal right atrial pressure, 5 mmHg. Aorta The aortic root size at the sinus of Valsalva is normal. Left Ventricular Outflow Tract Name Value Normal LVOT 2D LVOT Diameter 2.1 cm LVOT Doppler LVOT Peak Gradient 6 mmHg LVOT Mean Gradient 4 mmHg LVOT VTI 35 cm LVOT VTI/AV VTI Ratio 0.8 LVOT Stroke Volume 117 ml LVOT CO 18.6 l/min LVOT CI 9.9 l/min/m2 Pulmonic Valve Name Value Normal
[2023-11-28] MEDS: CENTRAL LINE FLUSH 10 ML IV PUSH ×3 (06:09→20:40)
[2023-11-28] MEDS: MORPHINE SULFATE (*CRX) 4 MG/ML INJ IV PUSH ×3 (06:09→14:49)
--- NOTE | 2023-11-28 09:15 | PM.IMPN ---
Progress Note: A&P Assessment and Plan (1) HTN (hypertension): Code(s): I10 - Essential (primary) hypertension Status: Acute (2) UTI (urinary tract infection): Code(s): N39.0 - Urinary tract infection, site not specified Status: Acute (3) Bradycardia: Code(s): R00.1 - Bradycardia, unspecified Status: Acute (4) Ground-level fall: Code(s): W18.30XA - Fall on same level, unspecified, initial encounter Status: Acute (5) Comminuted fracture of right humerus: Qualifiers: Encounter type: initial encounter Fracture alignment: displaced Fracture type: closed Humerus Location: shaft Qualified Code(s): S42.351A - Displaced comminuted fracture of shaft of humerus, right arm, initial encounter for closed fracture Code(s): S42.351A - Displaced comminuted fracture of shaft of humerus, right arm, initial encounter for closed fracture Status: Acute Plan Ground level fall with injury Patient reports slipped on liquid however she has been bradycardiac during this admission CT head: Large frontal scalp hematoma. No fracture or acute intracranial process.Age related changes including mild to moderate diffuse volume loss and mild scattered white matter hypoattenuation consistent with chronic small vessel ischemic disease. CT cervical spine: Moderate cervical spondylosis. No acute osseous abnormality. XR right elbow, humerus, shoulder: Displaced and angulated comminuted fractures of the proximal right humerus which appears to extend from the greater tuberosity to the anterior margin of the mid diaphysis. CXR: no acute cardiopulmonary disease. XR pelvis: no acute osseous abnormality. pain management PT/OT Bradycardia could be cause of fall HR as low as 25 reported to overnight provider stopped coreg cardiology consulted Echo pending does have history of SPARKLE but low HR has been constant Committed fracture of the right humerus XR right elbow, humerus, shoulder: Displaced and angulated comminuted fractures of the proximal right humerus which appears to extend from the greater tuberosity to the anterior margin of the mid diaphysis. ED spoke with Navid DANIEL with orthopedic team, recommended: patient's pain poorly controlled ortho consulted Immobilizer follow-up in 1 week Pain control UTI Urine cultures Klebsiella Rocephin switched to Bactrim per sensitivities HX of DVT: holding eliquis due to fall and hematoma HX HTN: Resumed losartan holding Coreg due to bradycardia/started on amlodipine HX HLD: Resumed atorvastatin Time Spent With Patient Time with patient: 15 - 25 minutes Subjective Date/time seen: 11/28/23 09:15 Interval history: Admission: Medical Record 78 y/o F presents here for further evaluation after ground level fall with PMH of metastatic colon cancer (s/p colon resection with colostomy in 2022), COPD, CHF, HTN, CKD, and DVT to the LLE on Eliquis.? SH of colectomy and colostomy. Patient presents here from home via EMS for further evaluation after ground level fall.? Patient was caring her breakfast to her room when the biscuits and sausage fell onto the floor, patient stepped onto the sausage and slipped. Patient fell face forward.? Positive head strike to the forehead, no loss of consciousness, currently on Eliquis secondary to DVT (LLE).? Has previous history of fall 2 years ago with head strike to same region developed hematoma, has raised area to this location at baseline.? Complaints upon arrival were of right shoulder pain and right upper extremity pain.? Described as severe, worsening with movement, and non-radiating.? Aggravating or alleviating factors - movement worsens the RUE pain and rest/holding upper extremity still partially alleviates the pain.? No other other recent falls. Will occasionally use a cane when she is feeling weak, but does not need an assistive device on a regular basis. Denies prodromal s/s prior to fall - li
[2023-11-28] MEDS: LOSARTAN POTASSIUM 100 MG TABLET PO (09:33)
[2023-11-28] MEDS: predniSONE 20 MG TABLET 60 MG PO (09:33)
[2023-11-28] MEDS: ASPIRIN 81 MG ENTERIC TABLET PO (09:33)
[2023-11-28] MEDS: TORSEMIDE 20 MG TABLET PO (09:34)
--- NOTE | 2023-11-28 13:01 | PM.CNCAR ---
Assessment and Plan Assessment and plan (1) Asymptomatic bradycardia: Code(s): R00.1 - Bradycardia, unspecified Status: Acute Assessment and Plan: Asymptomatic sinus bradycardia. Tele with heart rates as low as 30s, although most of the time this is during sleeping hours. No significant bradyarrhythmias on tele, no heart block, etc. Heart rates 50s-60s at the time of my evaluation. Her bradycardia is likely not the reason for her fall as per history her fall clearly appears to be a mechanical fall. Echocardiogram 11/27 shows LVEF 55-60%, grade 1 diastolic dysfunction, moderately enlarged left atrium, mild-moderate MR. Will check TSH level. Agree with discontinuing Coreg. Patient's daughter is bringing her CPAP to hospital so she can wear it when sleeping. No additional cardiac workup at this time. Patient to follow up with her primary curriculum assistant principal, Dr. Holder after hospital discharge. Cardiology will sign off at this time. Please call us back if needed. (2) Comminuted fracture of right humerus: Qualifiers: Encounter type: initial encounter Fracture alignment: displaced Fracture type: closed Humerus Location: shaft Qualified Code(s): S42.351A - Displaced comminuted fracture of shaft of humerus, right arm, initial encounter for closed fracture Code(s): S42.351A - Displaced comminuted fracture of shaft of humerus, right arm, initial encounter for closed fracture Status: Acute Assessment and Plan: Conservative management as per Ortho. (3) DVT (deep venous thrombosis): Code(s): I82.409 - Acute embolism and thrombosis of unspecified deep veins of unspecified lower extremity Status: Resolved Assessment and Plan: Eliquis on hold given her hematoma. Resumption of Eliquis to be determined by Hospitalist. (4) Coronary artery disease: Code(s): I25.10 - Atherosclerotic heart disease of [place] coronary artery without angina pectoris Status: Acute Assessment and Plan: Stable. Continue ASA and statin. (5) Cardiomyopathy: Code(s): I42.9 - Cardiomyopathy, unspecified Status: Acute Assessment and Plan: History of reduced LVEF in the past, which recovered. Stop Coreg due to bradycardia. Continue Torsemide and Losartan. Plan Cardiology will sign off at this time. Please call us back if needed. History of Present Illness History of Present Illness Consult date/time: 11/28/23 13:01 Requesting physician: Salma Gomez, [facility] [employer] Consult reason: Other (Bradycardia) Reason For Visit: Fall/Humerus Fracture Narrative: We are consulted for bradycardia. This is a 78 year old female with metastatic colon cancer s/p colon resection with colostomy, coronary artery disease s/p stent, cardiomyopathy, peripheral vascular disease s/p RSFA laser atherectomy in 2018, CKD, diabetes mellitus, LLE DVT on Eliquis, SPARKLE compliant with CPAP therapy. Patient's primary curriculum assistant principal is Dr. Rigobreto Holder with [facility]. Patient presented to [place] [facility] after a ground-level fall. No syncope. Patient was carrying her breakfast to her room and her biscuits and sausage fell onto the floor, and patient slipped on the sausage and fell. She has a large frontal scalp hematoma and a displaced and angulated comminuted fracture of the proximal right humerus. We are consulted for sinus bradycardia with heart rates dropping to 30s. Patient's blood pressure stable. No chest pain, palpitations, shortness of breath, lightheadedness/dizziness, or other cardiac symptoms. She reports being fully compliant with her CPAP at home, but has not been receiving it here in the hospital. 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
[2023-11-28 13:45] LABS: Thyroid Stimulating Hormone 0.388 uIU/mL (0.465-4.680)
[2023-11-28] MEDS: amLODIPine BESYLATE 5 MG TABLET 10 MG PO (17:48)
[2023-11-28] MEDS: HYDROcodone/acetaminophen (*CRX) 5-325 MG TABLET 1 TAB PO (17:49)
[2023-11-28] MEDS: ATORVASTATIN 40 MG TABLET PO (20:39)
[2023-11-28] MEDS: CEPHALEXIN 500 MG CAPSULE PO (20:39)
[2023-11-29] VITALS: PULSE 49
[2023-11-29] MEDS: HYDROcodone/acetaminophen (*CRX) 5-325 MG TABLET 1 TAB PO ×2 (01:16→12:11)
[2023-11-29 04:00] VITALS: PULSE 41
[2023-11-29 05:43] VITALS: BP 149/53; PULSE 58; RESP 18; TEMP 36.5; O2SAT 100
[2023-11-29 06:13] LABS: Hematocrit 35.2 % (37.0-47.0); Hemoglobin 11.4 g/dL (12.0-15.0); Mean Corpuscular HGB Conc 32.4 g/dl (32-36); Mean Corpuscular Hemoglobin 29.8 pg (26-34); Mean Corpuscular Volume 91.9 fl (80-100); Mean Platelet Volume 10.6 fl (7.4-10.4); Platelet Count Result 266 k/mm3 (150-375); Red Blood Count 3.83 M/mm3 (4.2-5.4); Red Cell Distribution Width 13.6 % (11.5-14.5); White Blood Count 18.4 K/mm3 (4.5-10.0)
[2023-11-29 06:26] LABS: Alanine Aminotransferase 18 U/L (6-35); Albumin Level 3.3 g/dL (3.5-5.1); Alkaline Phosphatase 68 U/L (38-126); Anion Gap 8 mmol/L (4-12); Aspartate Amino Transferase 19 U/L (14-36); Bilirubin,Total 0.6 mg/dL (0.2-1.3); Blood Urea Nitrogen 68 mg/dL (7-17); Calcium 8.6 mg/dL (8.4-10.2); Carbon Dioxide 27 mmol/L (22-30); Chloride 102 mmol/L (98-107); Estimated Glomerular Filt Rate 26; Glucose 165 mg/dL (65-110); Potassium 3.7 mmol/L (3.4-5.0); Sodium 137 mmol/L (137-145)
[2023-11-29 07:13] LABS: Free T4 Free Thyroxine 0.96 ng/mL (0.78-2.19)
[2023-11-29] MEDS: MORPHINE SULFATE (*CRX) 4 MG/ML INJ IV PUSH (07:47)
[2023-11-29] MEDS: CENTRAL LINE FLUSH 10 ML IV PUSH ×2 (07:49→12:13)
[2023-11-29 08:00] VITALS: PULSE 41
[2023-11-29] MEDS: CEPHALEXIN 500 MG CAPSULE PO (08:14)
[2023-11-29] MEDS: ASPIRIN 81 MG ENTERIC TABLET PO (08:14)
[2023-11-29] MEDS: amLODIPine BESYLATE 5 MG TABLET 10 MG PO (08:14)
[2023-11-29] MEDS: LOSARTAN POTASSIUM 100 MG TABLET PO (08:14)
[2023-11-29] MEDS: TORSEMIDE 20 MG TABLET PO (08:14)
[2023-11-29 12:00] VITALS: PULSE 76
--- NOTE | 2023-11-29 14:44 | PM.DS ---
DS: Admitting Diagnosis Discharge Date 11/29/2023 Admitting Diagnosis Mechanical fall/right humerus fracture/UTI/bradycardia DS: Discharge Diagnosis Discharge Diagnosis (1) HTN (hypertension): Code(s): I10 - Essential (primary) hypertension Status: Acute (2) UTI (urinary tract infection): Code(s): N39.0 - Urinary tract infection, site not specified Status: Acute (3) Bradycardia: Code(s): R00.1 - Bradycardia, unspecified Status: Acute (4) Ground-level fall: Code(s): W18.30XA - Fall on same level, unspecified, initial encounter Status: Acute (5) Comminuted fracture of right humerus: Qualifiers: Encounter type: initial encounter Fracture alignment: displaced Fracture type: closed Humerus Location: shaft Qualified Code(s): S42.351A - Displaced comminuted fracture of shaft of humerus, right arm, initial encounter for closed fracture Code(s): S42.351A - Displaced comminuted fracture of shaft of humerus, right arm, initial encounter for closed fracture Status: Acute Plan Ground level fall with injury Patient reports slipped on liquid however she has been bradycardiac during this admission CT head: Large frontal scalp hematoma. No fracture or acute intracranial process.Age related changes including mild to moderate diffuse volume loss and mild scattered white matter hypoattenuation consistent with chronic small vessel ischemic disease. CT cervical spine: Moderate cervical spondylosis. No acute osseous abnormality. XR right elbow, humerus, shoulder: Displaced and angulated comminuted fractures of the proximal right humerus which appears to extend from the greater tuberosity to the anterior margin of the mid diaphysis. CXR: no acute cardiopulmonary disease. XR pelvis: no acute osseous abnormality. pain management PT/OT Bradycardia could be cause of fall HR as low as 25 reported to overnight provider stopped coreg cardiology consulted Echo pending does have history of SPARKLE but low HR has been constant Committed fracture of the right humerus XR right elbow, humerus, shoulder: Displaced and angulated comminuted fractures of the proximal right humerus which appears to extend from the greater tuberosity to the anterior margin of the mid diaphysis. ED spoke with Navid ADNIEL with orthopedic team, recommended: patient's pain poorly controlled ortho consulted [facility] follow-up in 1 week Pain control UTI Urine cultures Klebsiella Rocephin switched to Bactrim per sensitivities HX of DVT: holding eliquis due to fall and hematoma HX HTN: Resumed losartan holding Coreg due to bradycardia/started on amlodipine HX HLD: Resumed atorvastatin DS: Summary Hospital Course Hospital Course: Admission:? Medical Record 78 y/o F presents here for further evaluation after ground level fall with PMH of metastatic colon cancer (s/p colon resection with colostomy in 2022), COPD, CHF, HTN, CKD, and DVT to the LLE on Eliquis.? SH of colectomy and colostomy. Patient presents here from home via EMS for further evaluation after ground level fall.? Patient was caring her breakfast to her room when the biscuits and sausage fell onto the floor, patient stepped onto the sausage and slipped. Patient fell face forward.? Positive head strike to the forehead, no loss of consciousness, currently on Eliquis secondary to DVT (LLE).? Has previous history of fall 2 years ago with head strike to same region developed hematoma, has raised area to this location at baseline.? Complaints upon arrival were of right shoulder pain and right upper extremity pain.? Described as severe, worsening with movement, and non-radiating.? Aggravating or alleviating factors - movement worsens the RUE pain and rest/holding upper extremity still partially alleviates the pain.? No other other recent falls. Will occasionally use a cane when she is feeling weak, but does not need an assistive device
[2023-11-29] MEDS: HEPARIN SODIUM LOCK FLUSH 500 UNITS/5 ML SYRINGE IV PUSH (14:49)
[2023-11-29] MEDS: NEOMYCIN/POLYMYXIN/BACITRACIN OINTMENT PACKET 1 PACKET (14:59)
== END 2023-11-29 15:22 | disposition home or self-care (01) ==
LOC: ANHED 11:41 → ANH3MED 16:51
PROVIDERS: Internal Medicine; Internal Medicine Critical Care Medicine; Nurse Practitioner Family; Student in an Organized Health Care Education/Training Program; Admitting Provider Internal Medicine; Emergency Provider Student in an Organized Health Care Education/Training Program; PCP Internal Medicine; Visit Provider Hospitalist
DX: S42.351A Displaced comminuted fracture of shaft of humerus, right arm, initial encounter for closed fracture (principal); S00.03XA Contusion of scalp, initial encounter; W18.30XA Fall on same level, unspecified, initial encounter; Y92.009 Unspecified place in unspecified non-institutional (private) residence as the place of occurrence of the external cause; N39.0 Urinary tract infection, site not specified; R00.1 Bradycardia, unspecified; I13.0 Hypertensive heart and chronic kidney disease with heart failure and stage 1 through stage 4 chronic kidney disease, or unspecified chronic kidney disease; I50.9 Heart failure, unspecified; N18.9 Chronic kidney disease, unspecified; J44.9 Chronic obstructive pulmonary disease, unspecified; Z23 Encounter for immunization; M47.812 Spondylosis without myelopathy or radiculopathy, cervical region; R94.31 Abnormal electrocardiogram [ECG] [EKG]; I08.0 Rheumatic disorders of both mitral and aortic valves; G47.33 Obstructive sleep apnea (adult) (pediatric); F32.A Depression, unspecified; Z93.3 Colostomy status; Z90.49 Acquired absence of other specified parts of digestive tract; F17.210 Nicotine dependence, cigarettes, uncomplicated; Z85.038 Personal history of other malignant neoplasm of large intestine; Z86.718 Personal history of other venous thrombosis and embolism; Z79.01 Long term (current) use of anticoagulants; Z79.82 Long term (current) use of aspirin; Z79.52 Long term (current) use of systemic steroids; Z79.899 Other long term (current) drug therapy
CPT/HCPCS: 36415; 70450; 71045; 72125; 72170; 73030; 73060; 73080; 80053; 81001; 84439; 84443; 85025; 85027; 85610; 85730; 87077; 87086; 87088; 87186; 90471; 90715; 93005; 93306; 96365; 96374; 96375; 96376; 97161; 99285; A4565; A9270; G0378; J0696; J1642; J2270; J2405; J7030; J7512